=== PATIENT | female | born 1985 | race Caucasian/White ===

== ENCOUNTER 2020-08-26 22:13 | Emergency (ER) | payer SELFPAY ==
[2020-08-26 23:06] LABS: Hemoglobin 13.7 g/dL (12.0-16.0); Red Blood Cell (RBC) Count 4.71 mill/uL (4.20-5.40); White Blood Cell (WBC) Count 8.4 thou/uL (4.8-10.8)
[2020-08-26 23:07] LABS: #Neutrophils 4.5 thou/uL (1.40-6.50); %Eosinophils 2.1 % (0.0-10.0); %Neutrophils 52.9 % (42.0-75.0); Mean Corpuscular HGB CONC 32.9 g/dL (32.0-36.0); Mean Corpuscular Hemoglobin 29.1 pg (27.0-31.0); Mean Corpuscular Volume 88.5 fL (78.0-98.0); Mean Platelet Volume 7.7 fL (7.4-10.4); Platelet Count 306 thou/uL (130-400); RBC Distribution Width 11.4 % (11.5-14.5)
[2020-08-26 23:08] LABS: #Basophils 0.1 thou/uL (0.0-0.2); #Eosinphils 0.2 thou/uL (0.0-0.7); #Lymphocytes 3.1 thou/uL (1.20-3.40); #Monocytes 0.6 thou/uL (0.11-0.59)
[2020-08-26 23:26] LABS: ALT (SGPT) 12 U/L (8-55); AST (SGOT) 19 U/L (5-34); Albumin 4.4 g/dL (3.5-5.0); Alkaline Phosphatase 50 U/L (40-110); Anion Gap 14 mmol/L (10-20); BUN (Urea Nitrogen) 13 mg/dL (7.0-18.7); Bilirubin, Total 0.6 mg/dL (0.2-1.2); Calc. Creatinine Clearance 0 mL/min (70-130); Calcium 9.4 mg/dL (7.8-10.44); Carbon Dioxide 27 mmol/L (22-29); Chloride 104 mmol/L (98-107); Globulin 2.6 g/dL (2.4-3.5); Glucose 74 mg/dL (70-105); Lipase 66 U/L (8-78); Potassium 3.6 mmol/L (3.5-5.1); Sodium 141 mmol/L (136-145)
[2020-08-26] MEDS ORDERED: Aspirin Chewable 81 MG TAB ONE (23:59)
[2020-08-27 02:10] LABS: Troponin I Less than 0.010 ng/mL (< 0.028)
== END 2020-08-27 02:20 | disposition home or self-care (01) ==
LOC: MADERS 22:13
DX: R07.2 Precordial pain (principal); R11.0 Nausea; F17.220 Nicotine dependence, chewing tobacco, uncomplicated
CPT/HCPCS: 36415; 71045; 80053; 83690; 84484; 85025; 93005